=== PATIENT | female | born 1995 | race Asian ===

== ENCOUNTER 2016-05-03 13:52 | Emergency (ER) | payer OTHER ==
[~2016-05-03] VITALS: Ht 172.7 cm; Wt 127.0 kg
[2016-05-03 14:04] VITALS: BP 149/100; TEMP 98.8
[2016-05-03] MEDS ORDERED: AMOXICILLIN250 M1 OR (15:07)
[2016-05-03] MEDS ORDERED: PROAIR HFA IN (15:07)
[2016-05-03] MEDS ORDERED: PRED10TA27 PO (15:07)
[2016-05-03] MEDS ORDERED: ZANTAC 75 PO (15:07)
[2016-05-03] MEDS ORDERED: CETI10TA PO (15:11)
== END 2016-05-03 15:10 | disposition home or self-care (01) ==
LOC: ED 13:52
DX: J01.90 Acute sinusitis, unspecified (principal); J30.9 Allergic rhinitis, unspecified; J45.901 Unspecified asthma with (acute) exacerbation
CPT/HCPCS: 99282

== ENCOUNTER 2016-05-17 11:48 | Emergency (ER) | payer OTHER ==
[~2016-05-17] VITALS: Ht 172.7 cm; Wt 127.0 kg
[~2016-05-17 11:48] MED LIST: AMOXICILLIN250 M1 OR; CETI10TA PO; PRED10TA27 PO; PROAIR HFA IN; ZANTAC 75 PO
[2016-05-17 12:01] VITALS: TEMP 98.1
[2016-05-17 12:36] VITALS: BP 183/100
== END 2016-05-17 12:36 | disposition home or self-care (01) ==
LOC: ED 11:48
DX: J32.9 Chronic sinusitis, unspecified (principal); M54.5 Low back pain
CPT/HCPCS: 99282

== ENCOUNTER 2016-08-21 23:33 | Emergency (ER) | payer OTHER ==
[~2016-08-21] VITALS: Ht 172.7 cm; Wt 136.1 kg
[2016-08-22 00:04] VITALS: BP 167/101; TEMP 98.2
== END 2016-08-22 00:44 | disposition home or self-care (01) ==
LOC: ED 23:33
DX: M26.609 Unspecified temporomandibular joint disorder, unspecified side (principal)

== ENCOUNTER 2016-08-28 01:31 | Emergency (ER) | payer OTHER ==
[~2016-08-28] VITALS: Ht 170.2 cm; Wt 138.3 kg
[2016-08-28 01:35] VITALS: TEMP 98.2
[2016-08-28 01:55] VITALS: BP 136/85
== END 2016-08-28 01:56 | disposition home or self-care (01) ==
LOC: ED 01:31
DX: R42 Dizziness and giddiness (principal)
CPT/HCPCS: 99282

== ENCOUNTER 2020-04-11 14:55 | Emergency (ER) | payer OTHER ==
[~2020-04-11] VITALS: Ht 170.2 cm; Wt 136.1 kg
[2020-04-11 15:10] VITALS: TEMP 99.2
[2020-04-11 15:32] LABS: PLATELET COUNT 233 K/uL (152-353)
[2020-04-11 15:40] LABS: POTASSIUM 3.4 mmol/L (3.6-5.2)
[2020-04-11 16:28] VITALS: BP 140/65
== END 2020-04-11 16:38 | disposition home or self-care (01) ==
LOC: ED 14:55
PROVIDERS: Emergency Medicine Emergency Medical Services
DX: N93.8 Other specified abnormal uterine and vaginal bleeding (principal)
CPT/HCPCS: 80053; 81000; 81025; 85027; 85610; 85730; 99283

== ENCOUNTER 2020-06-18 14:22 | Emergency (ER) | payer OTHER ==
[~2020-06-18] VITALS: Ht 170.2 cm; Wt 147.4 kg
[2020-06-18 14:30] VITALS: TEMP 97.4
[2020-06-18 14:46] LABS: PLATELET COUNT 304 K/uL (152-353)
[2020-06-18 14:57] LABS: POTASSIUM 3.6 mmol/L (3.6-5.2); SODIUM 140 mmol/L (136-145)
[2020-06-18 15:09] LABS: PARTIAL THROMBOPLASTIN TIME 26.7 SECONDS (24.5-33.6)
[2020-06-18 16:15] VITALS: BP 148/79
== END 2020-06-18 16:20 | disposition home or self-care (01) ==
LOC: ED 14:22
PROVIDERS: Hospitalist
DX: R00.2 Palpitations (principal)
CPT/HCPCS: 36415; 80053; 82550; 83880; 84484; 85027; 85379; 85610; 85730; 93005; 96372; 99283; 99284; J1650; Q9963

== ENCOUNTER 2020-08-02 12:57 | Emergency (ER) | payer OTHER ==
[~2020-08-02] VITALS: Ht 170.2 cm; Wt 147.4 kg
[2020-08-02 13:00] VITALS: TEMP 98.8
[2020-08-02 13:53] LABS: PLATELET COUNT 268 K/uL (152-353)
[2020-08-02 13:59] LABS: POTASSIUM 3.2 mmol/L (3.6-5.2)
[2020-08-02 15:35] VITALS: BP 140/84
== END 2020-08-02 15:36 | disposition home or self-care (01) ==
LOC: ED 12:57
PROVIDERS: Family Medicine
DX: Z33.1 Pregnant state, incidental (principal); R11.2 Nausea with vomiting, unspecified; E87.6 Hypokalemia
CPT/HCPCS: 80053; 81000; 81025; 82150; 83690; 85027; 96360; 96374; 96375; 99284; J2405

== ENCOUNTER 2022-09-26 15:16 | Emergency (ER) | payer OTHER ==
[~2022-09-26] VITALS: Ht 170.2 cm; Wt 158.8 kg
[2022-09-26 15:20] VITALS: TEMP 99.2
[2022-09-26 15:40] LABS: PLATELET COUNT 338 K/uL (152-353)
[2022-09-26 15:45] LABS: POTASSIUM 3.4 mmol/L (3.6-5.2)
[2022-09-26 16:35] VITALS: BP 152/98
== END 2022-09-26 16:35 | disposition home or self-care (01) ==
LOC: ED 15:16
PROVIDERS: Family Medicine
DX: R51.9 Headache, unspecified (principal); I10 Essential (primary) hypertension
CPT/HCPCS: 80053; 81025; 85027; 96372; 99283; J1885